=== PATIENT | female | born 1995 | race African-American/Black ===

== ENCOUNTER 2017-02-13 16:18 | Inpatient (IN) | payer BC, OTHER ==
[~2017-02-13] VITALS: Ht 180.3 cm; Wt 68.0 kg
[~2017-02-13 16:18] MED LIST: Bupropion Hcl PO; DICY20TA28 PO; Gabapentin PO; HYDR-3895 PO; Ibuprofen PO; LACT1CAP57 PO; METH-33 PO; RISP2TAB5 PO; SULF1TAB3 PO
--- NOTE | 2017-02-14 14:00 | NUR ---
PRE-ADMISSION Pt in intake, 21 yr old female, AA&Ox4. VS were obtain and WNL. Pt is medically cleared and stable.
[2017-02-14 14:05] VITALS: BP 108/72
[2017-02-14 15:36] LABS: *URINE HCG, QUAL NEGATIVE (NEGATIVE)
[2017-02-14 15:37] LABS: *BILIRUBIN,URIN NEGATIVE (NEGATIVE); *BLOOD, URINE 1+ (NEGATIVE); *CLARITY,URINE SLIGHTLY CLOUDY (CLEAR); *COLOR,URINE YELLOW (YELLOW); *KETONES,URINE NEGATIVE (NEGATIVE); *PROTEIN,URINE NEGATIVE (NEGATIVE); *UROBILINOGEN,URINE 0.2 E.U./dl (NORMAL); LEUKOCYTE ESTERASE ,URINE 1+ (NEGATIVE); NITRITE, URINE NEGATIVE (NEGATIVE); UGLUCOSE NEGATIVE (NEGATIVE)
[2017-02-14] MEDS ORDERED: HYDROXYZINE PAMOATE 25 MG CAPSULE PO PRN (15:45)
[2017-02-14] MEDS ORDERED: DICYCLOMINE HCL 20 MG TABLET PO PRN (15:45)
[2017-02-14] MEDS ORDERED: MAGNESIUM HYDROXIDE 30 ML LIQUID UDC PO PRN (15:45)
[2017-02-14] MEDS ORDERED: LOPERAMIDE HCL 2 MG CAPSULE PO PRN ×2 (15:45)
[2017-02-14] MEDS ORDERED: MAG HYDROX/AL HYDROX/SIMETH 30 ML LIQUID UDC PO PRN (15:45)
[2017-02-14] MEDS ORDERED: MIRALAX 17 GM POWD.PACK PO PRN (15:45)
[2017-02-14] MEDS ORDERED: ONDANSETRON 4 MG/2 ML VIAL IM PRN (15:45)
[2017-02-14] MEDS ORDERED: ACETAMINOPHEN 325 MG TABLET PO PRN (15:45)
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
[2017-02-14] MEDS ORDERED: QUET200T PO (15:48)
[2017-02-14] MEDS ORDERED: RISP2TAB5 PO (15:48)
[2017-02-14] MEDS ORDERED: BUPR300T52 PO (15:48)
[2017-02-14] MEDS ORDERED: CLON0.1T PO (15:48)
[2017-02-14 15:50] LABS: *AMPHETAMINE, URINE POSITIVE (NEGATIVE); *BARBITURATE, URINE NEGATIVE (NEGATIVE); *CANNABINOID, URINE NEGATIVE (NEGATIVE); *COCCAINE, URINE NEGATIVE (NEGATIVE); *OPIATE, URINE POSITIVE (NEGATIVE); *PHENCYCLIDINE SCREEN,URINE NEGATIVE (NEGATIVE)
[2017-02-14 16:00] VITALS: BP 97/61
[2017-02-14 16:23] LABS: BACTERIA,URINE MANY /HPF (NONE SEEN)
[2017-02-14 16:24] LABS: SQUAMOUS EPITHELIAL CELL,UR MANY /HPF (NONE SEEN)
[2017-02-14] MEDS: IBUPROFEN 600 MG TABLET PO PRN (16:24)
[2017-02-14] MEDS: SULFAMETH/TRIMETH 800/160 MG TABLET PO SCH ×2 (16:24→21:13)
[2017-02-14] MEDS: METHOCARBAMOL 750 MG TABLET PO PRN (16:24)
--- NOTE | 2017-02-14 16:24 | NUR ---
MEDICATION ADMINISTERED Pt started on Bactrim DS for infection on right brachial area and UTI. Encouraged increase fluid intake. Pt c/o both arm pain 10/10. Robaxin 750mg PRN and Motrin 600mg PO PRN was given for pain mgt. Medication joe well. Warm Compress was applied. Will continue to monitor.
--- NOTE | 2017-02-14 17:24 | NUR ---
PRN RE-ASSESSMENT Motrin PRN and Robaxin PRN was effective. Pt states pain 10. Encouraged increase fluid intake. Will continue to monitor.
[2017-02-14 19:05] LABS: BASOPHILS % (AUTO) 0.5 % (0.0-2.0); EOSINOPHILS # (AUTO) 0.1 K/uL (0.0-0.7); EOSINOPHILS % (AUTO) 0.8 % (0.0-7.0); HEMATOCRIT 37.8 % (37-47); HEMOGLOBIN 12.5 G/DL (12.0-16.0); LYMPHOCYTES # (AUTO) 2.1 K/UL (0.8-4.8); LYMPHOCYTES % (AUTO) 28.7 % (20.5-51.5); MEAN CORPUSCULAR HEMOGLOBIN 29.5 UUG (27.0-31.0); MEAN CORPUSCULAR HGB CONC 33 g/dL (32.0-37.0); MEAN CORPUSCULAR VOLUME 88.9 FL (81.0-99.0); MONOCYTES # (AUTO) 0.7 K/UL (0.1-1.30); MONOCYTES % (AUTO) 9.3 % (0.0-11.0); NEUTROPHILS # (AUTO) 4.3 K/UL (1.8-8.9); NEUTROPHILS % (AUTO) 60.7 % (38.5-71.5); PLATELET COUNT (AUTO) 289 K/UL (150-450); RED BLOOD CELL COUNT(AUTO) 4.26 MIL/UL (4.2-5.4); WHITE BLOOD COUNT (AUTO) 7.2 K/UL (4.0-11.2)
[2017-02-14 19:10] LABS: ALANINE AMINOTRANSFERASE 14 U/L (14-59); ALKALINE PHOSPHATASE 82 U/L (50-136); ASPARTATE AMINOTRANSFERASE 15 U/L (15-37); BILIRUBIN,TOTAL 0.5 mg/dL (0.2-1.0); CARBON DIOXIDE 22 mmol/L (21-32); CHLORIDE 104 mmol/L (98-107); CREATININE 0.8 mg/dL (0.6-1.3); GLUCOSE 82 mg/dL (74-106); MAGNESIUM 1.9 mg/dL (1.8-2.4); POTASSIUM 3.2 mmol/L (3.5-5.1); TOTAL PROTEIN, SERUM 7.3 g/dL (6.4-8.2); UREA NITROGEN, BLOOD 7 mg/dL (7-18)
--- NOTE | 2017-02-14 19:11 | NUR ---
END OF SHIFT Pt is a 21 yr old female, AA&Ox4. Pt is admitted for Opiate Dependence and is to start on 4 day Subutex taper on 02/15/17. Pt has been cooperative with care. Pt started on Bactrim DS for skin infection and UTI. No adverse reaction noted. Encouraged increase fluid intake. VS are WNL. Last COWS score is 7 at 1600. Safety precautions observed. Call light is within reach.
[2017-02-14 19:22] LABS: ETHANOL < 3 MG/DL (0-0)
[2017-02-14 19:46] LABS: THYROID STIMULATING HORMONE 1.013 mIU/mL (0.358-3.740)
[2017-02-14 20:00] VITALS: BP 113/76
--- NOTE | 2017-02-14 20:00 | NUR ---
START OF SHIFT: Pt is a 21 yr old female, AOx4. Pt is admitted for Opiate Dependence and is to start a 4 day Subutex taper on 02/15/17. Pt has been cooperative with treatment, started on Bactrim DS for skin infection and UTI. No adverse reaction noted. Pt c/o body aches, sweating of hands, chills, nausea and feeling flush. Last COWS is 14. Gave PRN Subutex for symptoms, will reassess pt for effectiveness of med. Will continue to monitor.
[2017-02-14] MEDS: BUPRENORPHINE HCL 2 MG TAB.SUBL SL PRN (20:01)
--- NOTE | 2017-02-14 21:01 | NUR ---
PRN REASSESSMENT: Pt reports feeling better, but still having some anxiety issues. Pt is up ambulating in [place] and request to smoke. Will continue to monitor.
[2017-02-14] MEDS: GABAPENTIN 300 MG CAPSULE PO SCH (21:13)
--- NOTE | 2017-02-15 | NUR ---
VITAL SIGN: Pt is calm and relaxed, no distress noted. Addendum: 02/15/17 at 0026 by MAAME JOSE RN Amended: Links added.
[2017-02-15] MEDS: BUPRENORPHINE HCL 2 MG TAB.SUBL SL PRN (03:06)
--- NOTE | 2017-02-15 03:06 | NUR ---
PRN SUBUTEX: Pt c/o feeling anxious, sweating, chills and body aches; gave subutex @4056 for withdrawal symptoms. Will reassess pt for effectiveness.
[2017-02-15 04:00] VITALS: BP 105/76
--- NOTE | 2017-02-15 04:06 | NUR ---
PRN REASSESSMENT: Pt reports feeling some relief from prn med, but still can't sleep and having some body aches. Will continue to monitor patient for symptoms.
--- NOTE | 2017-02-15 07:55 | NUR ---
START OF SHIFT NOTE Received report from night nurse, 20Opiate Dependence and is to start on 4 day Subutex taper starting today. Per endorsement pt received PRN Subutex, Last , slept for 1 hours. Received pt in her room anxious, restless. Pt reported slept for and hour last night and wanted to sleep now. Breathing normal no SOB noted respirations even and unlabored. Educated patient on her current plan of care for the day and her medication regimen, and encourage Po fluids as tolerated. All safety measures in place, Call light within reach. Will continue to monitor. Addendum: 02/15/17 at 1858 by CECE ROJAS LVN ERROR IN CHARTING 21 year old female admitted for Opioid dependence. Pt was placed on Subutex taper which is starting today at 0900.
[2017-02-15 08:00] VITALS: BP 106/69
[2017-02-15] MEDS: DOCUSATE SODIUM 250 MG CAPSULE PO SCH (08:36)
[2017-02-15] MEDS: GABAPENTIN 300 MG CAPSULE PO SCH ×3 (08:36→21:49)
[2017-02-15] MEDS: SULFAMETH/TRIMETH 800/160 MG TABLET PO SCH ×2 (08:36→21:49)
[2017-02-15] MEDS ORDERED: TUBERCULIN,PURIF.PROT.DERIV. 5 TU/0.1 ML TEST ID ONE (09:00)
[2017-02-15] MEDS ORDERED: 4 DAY TAPER BUPRENORPHINE -SERENITY PROTOCOL SL PRN (09:00)
[2017-02-15] MEDS: BUPRENORPHINE HCL 2 MG TAB.SUBL SL SCH ×4 (09:02→21:48)
[2017-02-15] MEDS ORDERED: BUPRENORPHINE HCL 2 MG TAB.SUBL SL ONE (09:11)
[2017-02-15] MEDS: ONDANSETRON ODT 4 MG TAB.RAPDIS SL PRN ×2 (10:28→17:35)
--- NOTE | 2017-02-15 10:28 | NUR ---
PRN ZOFRAN Pt c/o of nausea no emesis, PRN Zofran SL administered as ordered. Will cont to monitor and reassess.
--- NOTE | 2017-02-15 10:58 | NUR ---
REASSESSMENT Pt reported medication effective nausea improved.
--- NOTE | 2017-02-15 11:45 | NUR ---
Clinician encouraged client to attend groups when she feels better. Client said she would.
[2017-02-15 12:00] VITALS: BP 108/81
[2017-02-15] MEDS: METHOCARBAMOL 750 MG TABLET PO PRN (14:23)
--- NOTE | 2017-02-15 14:23 | NUR ---
PRN ROBAXIN Pt is c/o of muscle spasms 10/24. Administered PRN Robaxin 750 mg as ordered. Will cont to monitor and reassess.
[2017-02-15] MEDS: CLONIDINE HCL 0.1 MG TABLET PO PRN ×2 (14:30→21:50)
--- NOTE | 2017-02-15 14:30 | NUR ---
PRN CLONIDINE Pt was c/o hot, cold sweats. Administered PRN Clonidine 0.1mg as ordered. Will cont to monitor and reassess.
--- NOTE | 2017-02-15 15:23 | NUR ---
REASSESSMENT Pt reported muscle spasms decreased 1/10 medication effective.
--- NOTE | 2017-02-15 15:30 | NUR ---
REASSESSMENT Pt reported medication effective, hot and cold sweats subsided.
[2017-02-15 16:00] VITALS: BP 125/83
[2017-02-15] MEDS: IBUPROFEN 600 MG TABLET PO PRN (17:35)
--- NOTE | 2017-02-15 17:35 | NUR ---
PRN ZOFRAN/MOTRIN Pt c/o of nausea x1 emesis, and body aches 5/10 PRN Zofran SL /Motrin 600mg administered as ordered. Will cont to monitor and reassess.
[2017-02-15] MEDS ORDERED: 5 DAY TAPER BUPRENORPHINE -SERENITY PROTOCOL SL PRN (18:00)
--- NOTE | 2017-02-15 18:05 | NUR ---
REASSESSMENT Pt reported medication effective nausea improved and no episode of emesis.
--- NOTE | 2017-02-15 18:35 | NUR ---
REASSESSMENT Pt reported body aches decreased 2/10 medication effective.
--- NOTE | 2017-02-15 19:13 | NUR ---
END OF SHIFT NOTE Gave report to night nurse, 21 year old female admitted for Opioid dependence. Pt was placed on 4 days Subutex taper and changed to 5 days and stated this morning. Pt presented anxious, agitated, restless,nausea, vomiting, unable to sit still, body aches, muscle spasms, hot and cold flashes. Pt was given PRN Clonidine, Zofran x2, Motrin, Robaxin, effective. Vital signs remained stable. All safety measures in place, Call light within reach. Pt endorsed to night nurse in stable condition.
--- NOTE | 2017-02-15 19:15 | NUR ---
START OF SHIFT NOTE : Pt. is 21 year old female admitted for Opioid dependence. Pt was placed on 4 days Subutex taper and changed to 5 days and stated this morning. Pt presented anxious, agitated, restless, unable to sit still, muscle spasms, hot and cold flashes. Vital signs remained stable. Pt. goes to smoke every 40 minutes. All safety measures in place, Call light within reach. All needs have been met. Will continue to monitor patient and offer help.
[2017-02-15 20:00] VITALS: BP 119/89
--- NOTE | 2017-02-15 21:00 | NUR ---
PRN BENADRYL CLONIDINE Pt. complains of sleeplessness, flashes. PRN BENADRYL CLONIDINE given as ordered. Safety measures in place : bed on lowest position with side rails x2 up for safety, call light within reach. Will continue to monitor closely and offer help.
[2017-02-15] MEDS: risperiDONE 2 MG TABLET PO SCH (21:49)
[2017-02-15] MEDS: diphenhydrAMINE 50 MG CAPSULE PO PRN (21:49)
[2017-02-15] MEDS: LACTOBACILLUS RHAMNOSUS GG 1 EACH CAPSULE PO SCH (21:50)
--- NOTE | 2017-02-15 22:00 | NUR ---
REASSESSMENT BENADRYL , CLONIDINE Pt. is sleeping , RR=16 , unlabored and even. Safety measures in place : bed on lowest position with side rails x2 up for safety, call light within reach. Will continue to monitor closely and offer help.
--- NOTE | 2017-02-16 06:54 | NUR ---
END OF SHIFT NOTE : Pt. is 21 year old female admitted for Opioid dependence. Pt was placed on 4 days Subutex taper and changed to 5 days and stated this morning. Pt presented anxious, agitated, restless, unable to sit still, muscle spasms, hot and cold flashes. Vital signs remained stable Pt remains compliant with the treatment plan. PRN BENADRYL, CLONIDINE were given during my shift. V/S remain WNL. RR=16, even and unlabored, lungs clear upon auscultation, abdomen soft and non- distended. Pt denies nausea, vomiting and diarrhea. LAST COWS=5 at 0400 , [id number] ml, voided x 3, slept 5 hours. Safety measures in place : bed on lowest position with side rails x2 up for safety, call light within reach. Will continue to monitor closely and offer help.
--- NOTE | 2017-02-16 07:00 | NUR ---
Start of Shift Report to night nurse: pt is 21 y/o female her for Opiate r/t Heroin, Methamphetamine, & Marijuana dependence; 5 day Subutex taper ordered. Pt is a full code, regular diet, fall precautions ordered. HHhx: Asthma, Bipolar, multiple relapse with a visit here. No new orders or labs endorsed to me. V/S stable. Skin is not intact with abscess on RA and Uti with Atbs given as ordered. PRN Benadryl and Clonidine given last night. Last COWS 5. Pt is asleep in room. Will cont. to monitor the pt.
[2017-02-16 08:00] VITALS: BP 86/53
[2017-02-16 08:08] LABS: HEPATITIS B SURFACE AG Negative (Negative)
[2017-02-16 08:32] LABS: CREATININE 0.9 mg/dL (0.6-1.3); MAGNESIUM 2.2 mg/dL (1.8-2.4); PHOSPHOROUS 5.2 mg/dL (2.5-4.9); POTASSIUM 3.7 mmol/L (3.5-5.1)
[2017-02-16] MEDS ORDERED: BUPRENORPHINE HCL 2 MG TAB.SUBL SL SCH ×2 (09:00→15:00)
--- NOTE | 2017-02-16 09:00 | NUR ---
Deferred COWS Pt is asleep in bed. No COWS obtained. Will cont. to monitor the pt.
[2017-02-16] MEDS: LACTOBACILLUS RHAMNOSUS GG 1 EACH CAPSULE PO SCH ×2 (11:27→21:07)
[2017-02-16] MEDS: DOCUSATE SODIUM 250 MG CAPSULE PO SCH (11:27)
[2017-02-16] MEDS: GABAPENTIN 300 MG CAPSULE PO SCH ×3 (11:27→21:08)
[2017-02-16] MEDS: BUPRENORPHINE HCL 2 MG TAB.SUBL SL SCH ×3 (11:27→21:07)
[2017-02-16] MEDS: SULFAMETH/TRIMETH 800/160 MG TABLET PO SCH ×2 (11:27→21:07)
[2017-02-16 12:00] VITALS: BP_SYST 100; BP_SYST 113; BP_DIAS 64; BP_DIAS 67
[2017-02-16 16:00] VITALS: BP 102/64
--- NOTE | 2017-02-16 17:00 | NUR ---
Therapist prompted client about group times. Client stated she will start attending groups tomorrow when she feels better.
[2017-02-16] MEDS: KETOROLAC TROMETHAMINE 30 MG INJ IM PRN (17:03)
--- NOTE | 2017-02-16 17:05 | NUR ---
PRN Medication Administration Pt c/o Generalized pain 8-10; PRN Toradol 30mg given PRN in Right Deltoid. Will reassess in 1H.
--- NOTE | 2017-02-16 18:05 | NUR ---
Reassessment Pt is in bed resting and watching television and denies pain 0/10; Toradol is effective. Will cont. to monitor the pt.
--- NOTE | 2017-02-16 18:52 | NUR ---
End of Shift Report to night nurse with update: pt is stable. Skin is still intact. V/S stable. PRN Toradol given as ordered. Pt is excused from group therapy since this is her second day and she was able to catch up on sleep. No hallucinations, delusions or suicidal ideations noted. Last COWS 7
--- NOTE | 2017-02-16 19:15 | NUR ---
START OF SHIFT NOTE : Pt. is 21 year old female admitted for Opioid dependence. Pt was placed on 4 days Subutex taper and changed to 5 days , tolerating good. Pt presented anxious, restless, muscle spasms. Vital signs remained stable , Last COWS 5. Pt is asleep in room. Safety measures in place : bed on lowest position with side rails x2 up for safety, call light within reach. Will continue to monitor closely and offer help.
[2017-02-16 20:00] VITALS: BP 85/45
--- NOTE | 2017-02-16 21:00 | NUR ---
PRN BENADRYL, ROBAXIN Pt. complains of sleeplessness, muscle spasm. PRN BENADRYL, ROBAXIN given as ordered. Safety measures in place : bed on lowest position with side rails x2 up for safety, call light within reach. Will continue to monitor closely and offer help.
[2017-02-16] MEDS: METHOCARBAMOL 750 MG TABLET PO PRN (21:07)
[2017-02-16] MEDS: risperiDONE 2 MG TABLET PO SCH (21:07)
[2017-02-16] MEDS: diphenhydrAMINE 50 MG CAPSULE PO PRN (21:07)
--- NOTE | 2017-02-16 22:00 | NUR ---
REASSESSMENT RUSSEL HENDERSON Pt. is sleeping , RR=16 , unlabored and even. Safety measures in place : bed on lowest position with side rails x2 up for safety, call light within reach. Will continue to monitor closely and offer help.
[2017-02-17 04:00] VITALS: BP 104/59
--- NOTE | 2017-02-17 06:41 | NUR ---
END OF SHIFT NOTE : Pt. is 21 year old female admitted for Opioid dependence. Pt was placed on 4 days Subutex taper and changed to 5 days , tolerating good. Pt presented anxious, restless, muscle spasms. Vital signs remained stable . Pt remains compliant with the treatment plan. PRN BENADRYL, ROBAXIN were given during my shift. V/S remain WNL. RR=16, even and unlabored, lungs clear upon auscultation, abdomen soft and non- distended. Pt denies nausea, vomiting and diarrhea. LAST COWS=5 at 0400 , [id number] ml, voided x 4, slept 5 hours. Safety measures in place : bed on lowest position with side rails x2 up for safety, call light within reach. Will continue to monitor closely and offer help.
--- NOTE | 2017-02-17 07:40 | NUR ---
Start of shift note; Received report from night nurse. Patient is a 21 year old female admitted on 02/14/17 for Opiate withdrawals. Patient was placed on a 5 day Subutex taper, no adverse reactions noted. Patient reported PMH of asthma and bipolar disorder. Patient is on full code status, regular diet. Patient noted to have skin abscess on right brachial area with current treatment of Bactrim DS Q12H. Patient is on fall precaution. Bed in lowest position, call light within reach. will continue to monitor patient.
[2017-02-17 08:00] VITALS: BP 99/68
[2017-02-17] MEDS ORDERED: BUPRENORPHINE HCL 2 MG TAB.SUBL SL SCH ×2 (09:00)
[2017-02-17] MEDS: GABAPENTIN 300 MG CAPSULE PO SCH ×3 (09:20→20:25)
[2017-02-17] MEDS: DOCUSATE SODIUM 250 MG CAPSULE PO SCH (09:20)
[2017-02-17] MEDS: LACTOBACILLUS RHAMNOSUS GG 1 EACH CAPSULE PO SCH ×2 (09:20→20:25)
[2017-02-17] MEDS: SULFAMETH/TRIMETH 800/160 MG TABLET PO SCH ×2 (09:20→20:24)
[2017-02-17] MEDS: ONDANSETRON ODT 4 MG TAB.RAPDIS SL PRN (11:09)
--- NOTE | 2017-02-17 11:21 | NUR ---
PRN medication; Patient is complaining of nausea, PRN Zofran 4mg ODT given to patient, will continue to monitor for effectiveness of medication.
[2017-02-17 12:00] VITALS: BP 99/65
--- NOTE | 2017-02-17 12:21 | NUR ---
Re-assessment; Patient denies nausea at this time. PRN medication is effective.
[2017-02-17] MEDS: BUPRENORPHINE HCL 2 MG TAB.SUBL SL SCH ×2 (14:19→20:25)
[2017-02-17 16:00] VITALS: BP 106/57
[2017-02-17] MEDS ORDERED: LIDOCAINE 2%-EPI 1:100,000 20 ML VIAL TP ONE (16:45)
[2017-02-17] MEDS ORDERED: LIDOCAINE 1%-EPI 1:100,000 20 ML VIAL TP ONE (16:45)
--- NOTE | 2017-02-17 17:00 | NUR ---
Procedure; Left AC I&D procedure done by RIGGER THIRD. Patient tolerated procedure well. Site kept clean and covered with dry dressing. Patient denies pain at this time. Will continue to monitor patient.
--- NOTE | 2017-02-17 18:20 | NUR ---
End of shift note; Patient is AOX4. Patient is a 21 year old female admitted on 02/14/17 for Opiate withdrawals. Patient was placed on a 5 day Subutex taper, no adverse reactions noted. Patient reported PMH of asthma and bipolar disorder. Patient is on full code status. Patient had I&D procedure today on her left AC, tolerated procedure well. Patient remained compliant to treatment and medication regime, medications were effective in reducing withdrawal symptoms. All safety measures secured. Met all needs.
--- NOTE | 2017-02-17 18:50 | NUR ---
START OF SHIFT NOTE: Patient endorsed by day shift nurse. Report received. Patient is a 21 year old female admitted to [facility] on 02/14/2017 for medically supervised withdrawal from heroin (IV) continue ordered 5 Day Subutex Taper since 02/15/2017 Taper with tolerated well without ASE. Patient remained compliant with treatment, medications and diet regime. Patient reports Allergies to Lamotrigine, Naloxone, and Oxcarbazepine. Patient is on Full Code, Regular Diet. Patient is on Fall and Seizures Precautions. Patient denies past Seizures History. PMH: Asthma, Bipolar Disorder. Patient reports Substance Use: "Heroin via IV 1-1.5 gram every day since 01/22/17. Last uses 0.3 grams via IV on 02/14/2017". Patient reports also uses "Methamphetamine via IV 0.2-0.3 grams every day since 01/23/2017. Last uses 0.3 grams via IV on 02/14/17". Patient uses "Marijuana 0.3 grams smoke every day during last month, since 01/14/2017. Last uses 0.3 grams on 02/12/2017". Patient reports that she was in multiple treatments. Last treatment was in "[facility]" on Nov, 2016 for 30 days, then relapsed on 01/22/17". "[facility] on Nov, 2016". At the time of endorsement patient is in his room. Patient is alert and oriented x4. Speech is clear and soft. Upon assessment: CIWA 5. Patient presented with anxiety, nervousness, tremors, barely sweating, restless legs, and fatigue. Patient denies SI/HI. Respirations unlabored and even. Patient denies SOB and chest pain. Lungs Sounds are clear bilaterally. Bowel Sounds active in all x4 quadrants. PERRLA, brisk capillary refill, receivable executive equal and strong. Skin is warm and dry to touch. Patient has abscess on Left Brachial area, that treated with I&D procedure today on her left AC, tolerated procedure well. VS WNL. Encourage fluids as tolerated. Encourage to attend activities group. Safety measures on place. Call light within reach, bed in lowest position and locked, padded rails up bilaterally rails up bilaterally. Will continue to monitor closely. Addendum: 02/18/17 at 2204 by TG GANT RN COWS 5.
[2017-02-17 20:00] VITALS: BP 104/73
--- NOTE | 2017-02-17 20:00 | NUR ---
DRESSING CHANGE: Patient c/o dressing loose on her left AC. Site kept clean and covered with dry dressing. Patient tolerated well. Patient denies pain at this time. All needs met. Safety measures on place. Call light within reach, bed in lowest position and locked, padded rails up bilaterally rails up bilaterally. Will continue to monitor closely.
[2017-02-17] MEDS: risperiDONE 2 MG TABLET PO SCH (20:26)
[2017-02-18] VITALS: BP 106/78
[2017-02-18] MEDS: diphenhydrAMINE 50 MG CAPSULE PO PRN ×2 (03:50→23:07)
--- NOTE | 2017-02-18 03:50 | NUR ---
PRN BENADRYL 50 MG 1 TAB PO ADMINISTRATION: Patient c/o insomnia and asked aid. Patient was assessed. VS WNL. PRN Benadryl 50 mg 1 tab PO administrated as ordered with full glass of water. Patient tolerated well. All needs met. Safety measures on place. Call light within reach, bed in lowest position and locked, padded rails up bilaterally.
[2017-02-18 04:00] VITALS: BP 104/70
--- NOTE | 2017-02-18 04:50 | NUR ---
RE-ASSESSMENT Patient is sleeping. RR 14. Respirations unlabored and even. All needs met. Safety measures on place. Call light within reach, bed in lowest position and locked, padded rails up bilaterally rails up bilaterally. Will continue to monitor closely.
--- NOTE | 2017-02-18 07:16 | NUR ---
END OF SHIFT NOTE: Patient endorsed to day shift nurse in stable condition. Report given. Patient is a 21 year old female admitted to [facility] on 02/14/2017 for medically supervised withdrawal from heroin (IV) continue ordered 5 Day Subutex Taper since 02/15/2017 Taper with tolerated well without ASE. Patient remained compliant with treatment, medications and diet regime. Patient reports Allergies to Lamotrigine, Naloxone, and Oxcarbazepine. Patient is on Full Code, Regular Diet. Patient is on Fall and Seizures Precautions. Patient denies past Seizures History. PMH: Asthma, Bipolar Disorder. Upon last assessment at 0400 COWS 7. Patient presented with anxiety, nervousness, tremors, barely sweating, restless legs, insomnia, and fatigue. Patient denies SI/HI. Respirations unlabored and even. Patient denies SOB and chest pain. Skin is warm and dry to touch. Patient has abscess on Left Brachial area, Left AC site kept clean and covered with dry dressing . Patient tolerated well. Patient denies pain at this time. VS at 0400 VS at 0400: T: 97.9; BP: 104/70; HR:70; RR:16; O2 SAT: 98%, pain level:"0/10". Encourage fluids as tolerated. Encourage to attend group activities. PRN Benadryl PO administrated as ordered for insomnia and was effective. Patient slept 6 hours, intake 2,710 ml, voided x6. All needs met. Safety measures on place. Call light within reach, bed in lowest position and locked, padded rails up bilaterally.
--- NOTE | 2017-02-18 07:57 | NUR ---
BEGINNING OF SHIFT Patient endorsement report received from rebar worker nurse, all pertinent information discussed. patient is a 21 year old female admitted on: 02/14/2017, with admitting Dx: Opiate dependence. Patient with past medical history of: asthma and bipolar d/o. Fall precautions observed at all times. S/P I&D Of abscess on right brachial area done on 02/17/2017. Will monitor closely. Patient Received PRN: Benadryl during rebar worker, per rebar worker medication effective, last cow score of: 8. Patient slept for 6 hours. Patient continues under close observation. continues on 5 day Subutex taper as ordered. taper as ordered and is scheduled to begin day 3 of taper. Safety measures in place. will continue to monitor.
[2017-02-18 08:19] VITALS: BP 100/67
[2017-02-18] MEDS: SULFAMETH/TRIMETH 800/160 MG TABLET PO SCH ×2 (08:47→20:38)
[2017-02-18] MEDS: DOCUSATE SODIUM 250 MG CAPSULE PO SCH (08:47)
[2017-02-18] MEDS: LACTOBACILLUS RHAMNOSUS GG 1 EACH CAPSULE PO SCH ×2 (08:47→20:37)
[2017-02-18] MEDS: GABAPENTIN 300 MG CAPSULE PO SCH ×3 (08:48→20:37)
[2017-02-18] MEDS: BUPRENORPHINE HCL 2 MG TAB.SUBL SL SCH ×3 (08:48→20:38)
[2017-02-18] MEDS ORDERED: BUPRENORPHINE HCL 2 MG TAB.SUBL SL SCH (09:00)
[2017-02-18] MEDS: KETOROLAC TROMETHAMINE 30 MG INJ IM PRN (12:18)
[2017-02-18] MEDS: ONDANSETRON ODT 4 MG TAB.RAPDIS SL PRN (12:22)
--- NOTE | 2017-02-18 12:22 | NUR ---
PRN TORADOL/ZOFRAN patient c/o pain of right A/C 10/, S/P I&D of abscess. patient c/o feeling nauseous, no episodes of vomiting noted. Patient was administered Toradol 30mg IM injection as ordered, injection well tolerated. patient was also administered Zofran 4mg SL as ordered, will monitor effectiveness of medication. safety measures in place. will continue to monitor. safety measures in place.
[2017-02-18] MEDS ORDERED: HYDROXYZINE PAMOATE 25 MG CAPSULE PO PRN (13:15)
--- NOTE | 2017-02-18 13:22 | NUR ---
TORADOL/ZOFRAN REASSESSMENT & DRESSING CHANGE Patient reports medication effective decrease in pain, current pain level is 2/10, tolerable as per patient. reports no longer feels nauseous. Dressing change to right A/C as ordered, cleansed with normal saline packed with iodine strips and covered with dry dressing as ordered, procedure well tolerated, aseptic technique observed at all times. Incision with no s/sx of infection. Encouraged patient increase in PO fluid intake as tolerated. Will continue to monitor closely. safety measures in place. Afebrile, skin warm and dry to touch, will continue ot monitor.
[2017-02-18 14:33] VITALS: BP 107/63
[2017-02-18] MEDS ORDERED: GABA-534 PO (15:03)
[2017-02-18] MEDS ORDERED: DIPH50CA37 PO (15:03)
[2017-02-18] MEDS ORDERED: DICY20TA28 PO (15:03)
[2017-02-18] MEDS ORDERED: SULF1TAB3 PO (15:03)
[2017-02-18] MEDS ORDERED: METH-406 PO (15:03)
[2017-02-18] MEDS ORDERED: HYDR-3895 PO (15:03)
[2017-02-18] MEDS ORDERED: IBUP-1955 PO (15:03)
--- NOTE | 2017-02-18 15:40 | NUR ---
Client was prompted to attend daily groups. Client stated that she would consider attending.
[2017-02-18 17:00] VITALS: BP 92/62
--- NOTE | 2017-02-18 18:53 | NUR ---
END OF SHIFT Patient alert and oriented x4, compliant with therapeutic plan of care. patient is a 21 year old female admitted on: 02/14/2017, with admitting Dx: Opiate dependence. Patient with past medical history of: asthma and bipolar d/o, with substance use of: heroin 1-1.5gram IV daily from -02/14/2017. Also with substance use of methamphetamine and marijuana. Patient currently with ongoing 5 day Subutex taper as ordered and is currently on day 3 of taper as ordered well tolerated, no ASE noted, 0900 assessment patient presented with heart rate of 84, c/o chills, restlessness, mild bone and joint aches, tremors that can be felt but not seen, irritable, and anxiety with cow score of: 8; 1300 assessment patient presented with: heart rate of 90, c/o chills, mild bone and joint aches, tremors that can be felt but not seen and anxiety with cow sore of: 6; 1700 assessment patient presented with: heart rate of 92, c/o chills, mild bone and joint aches, tremors that can be felt but not seen and anxiety with cow score of: 6. During shift patient received PRN: Toradol injection and Zofran as ordered, medication with relief one hour post administration. Wound care completed as ordered, area kept clean and dry, dressing is intact. Patient encouraged adequate PO fluid intake as tolerated. Encouraged to attend group therapies/sessions to learn new coping skills to prevent relapse. Denies any SI/HI. All needs met and rendered, call light kept with in reach, safety measures in place. Patient endorsement report given to women's soccer coach nurse.
--- NOTE | 2017-02-18 18:53 | NUR ---
START OF SHIFT NOTE: Patient endorsed by day shift nurse. Report received. Patient is a 21 year old female admitted to [facility] on 02/14/2017 for medically supervised withdrawal from heroin (IV) continue ordered 5 Day Subutex Taper since 02/15/2017 Taper with tolerated well without ASE. Patient remained compliant with treatment, medications and diet regime. Patient reports Allergies to Lamotrigine, Naloxone, and Oxcarbazepine. Patient is on Full Code, Regular Diet. Patient is on Fall and Seizures Precautions. Patient denies past Seizures History. PMH: Asthma, Bipolar Disorder, Substance Use. At the time of endorsement patient is in his room. Patient is alert and oriented x4. Speech is clear and soft. Upon assessment: CIWA 6. Patient presented with anxiety, nervousness, tremors, barely sweating, restless legs, and fatigue. Patient denies SI/HI. Respirations unlabored and even. Patient denies SOB and chest pain. Lungs Sounds are clear bilaterally. Bowel Sounds active in all x4 quadrants. PERRLA, brisk capillary refill, import export agent equal and strong. Skin is warm and dry to touch. Patient has abscess on Left Brachial area, that treated with I&D procedure today on her left AC, tolerated procedure well. VS WNL. Encourage fluids as tolerated. Encourage to attend activities group. Safety measures on place. Call light within reach, bed in lowest position and locked, padded rails up bilaterally rails up bilaterally. Will continue to monitor closely. Addendum: 02/18/17 at 2203 by TG GANT RN COWS 6.
[2017-02-18 20:00] VITALS: BP 90/60
[2017-02-18] MEDS: risperiDONE 2 MG TABLET PO SCH (20:38)
[2017-02-19] VITALS: BP 98/53
--- NOTE | 2017-02-19 00:07 | NUR ---
RE-ASSESSMENT Patient is sleeping. Respirations unlabored and even. RR 14. PRN Benadryl PO was effective. All needs met. Safety measures on place. Call light within reach, bed in lowest position and locked, padded rails up bilaterally rails up bilaterally. Will continue to monitor closely.
[2017-02-19 04:00] VITALS: BP 96/55
--- NOTE | 2017-02-19 07:13 | NUR ---
END OF SHIFT NOTE: Patient endorsed to day shift nurse in stable condition. Report given. Patient is a 21 year old female admitted to [facility] on 02/14/2017 for medically supervised withdrawal from heroin (IV) continue ordered 5 Day Subutex Taper since 02/15/2017 with tolerated well without ASE. Patient remained compliant with treatment, medications and diet regime. Patient reports Allergies to Lamotrigine, Naloxone, and Oxcarbazepine. Patient is on Full Code, Regular Diet. Patient is on Fall and Seizures Precautions. Patient denies past Seizures History. COWS 5 at 0400. Patient presented with anxiety, tachycardia, nervousness, tremors, barely sweating, restless legs, insomnia, and fatigue. Patient denies SI/HI. Respirations unlabored and even. Patient denies SOB and chest pain. Skin is warm and dry to touch. Patient has abscess on Left Brachial area, Left AC site kept clean and covered with dry dressing . Patient tolerated well. Patient denies pain at this time. VS at 0400 VS at 0400: T: 97.8; BP: 96/55; HR:86; RR:18; O2 SAT: 96%, pain level:"0/10". Encourage fluids as tolerated. Encourage to attend group activities. PRN Benadryl PO administrated as ordered for insomnia and was effective. Patient slept 6 hours 15 minutes, intake 1,592 ml, voided x4. All needs met. Safety measures on place. Call light within reach, bed in lowest position and locked, padded rails up bilaterally.
[2017-02-19 08:00] VITALS: BP 100/62
--- NOTE | 2017-02-19 08:00 | NUR ---
START OF SHIFT NOTE Received report from night nurse, 21 year old female admitted for Opiate Dependence Pt is cont with Subutex taper. Per endorsement pt was given PRN Benadryl effective. Received pt resting in her room Breathing normal no SOB noted respirations even and unlabored. Educated patient on her current plan of care for the day and her medication regimen, and encourage Po fluids as tolerated. All safety measures in place, Call light within reach. Will continue to monitor.
[2017-02-19] MEDS ORDERED: BUPRENORPHINE HCL 2 MG TAB.SUBL SL SCH (09:00)
[2017-02-19] MEDS: SULFAMETH/TRIMETH 800/160 MG TABLET PO SCH ×2 (10:03→20:58)
[2017-02-19] MEDS: GABAPENTIN 300 MG CAPSULE PO SCH ×3 (10:03→20:58)
[2017-02-19] MEDS: LACTOBACILLUS RHAMNOSUS GG 1 EACH CAPSULE PO SCH ×2 (10:03→20:58)
[2017-02-19 12:00] VITALS: BP 101/58
[2017-02-19 12:06] LABS: *AMPHETAMINE, URINE NEGATIVE (NEGATIVE); *BARBITURATE, URINE NEGATIVE (NEGATIVE); *CANNABINOID, URINE NEGATIVE (NEGATIVE); *COCCAINE, URINE NEGATIVE (NEGATIVE); *OPIATE, URINE POSITIVE (NEGATIVE); *PHENCYCLIDINE SCREEN,URINE NEGATIVE (NEGATIVE)
[2017-02-19] MEDS ORDERED: ONDANSETRON ODT 4 MG TAB.RAPDIS SL PRN (13:00)
[2017-02-19] MEDS ORDERED: MAGNESIUM CITRATE 296 ML BOTTLE PO ONE (13:00)
[2017-02-19] MEDS: DICYCLOMINE HCL 20 MG TABLET PO SCH ×2 (14:09→20:58)
[2017-02-19] MEDS: BACLOFEN 20 MG TABLET PO SCH ×2 (14:09→20:57)
[2017-02-19 16:00] VITALS: BP 105/60
--- NOTE | 2017-02-19 18:55 | NUR ---
END OF SHIFT NOTE Gave report to night nurse, 21 year old female admitted for Opioid dependence. Pt completed her Subutex taper tolerating well. Pt scheduled for discharge in AM, urine drug screen completed and placed in the chart. Left arm abscess change the dressing and picture taken and placed in the chart no s/s of infection no bleeding noted. Pt attended some groups and activities. Pt remained compliant with care. Vital signs remained WNL. All safety measures in place, Call light within reach. Pt endorsed to night nurse in stable condition.
[2017-02-19 20:00] VITALS: BP 119/80
--- NOTE | 2017-02-19 20:15 | NUR ---
START OF SHIFT NOTE Pt is a 21 y/o female admitted for Heroin, Meth, and Marijuana dependence and use. Pt has allergies to Lamictal, naloxone, and oxcarbazepine and reported a PMH of asthma and bipolar. Per day shift nurse pt completed a 5 day Subutex taper and is scheduled for discharge tomorrow. UA was collected and sent to the lab for testing via day shift nurse. Pt received Magnesium citrate for a c/o constipation. Pt has not yet had a bowel movement but reported having flatulence and very mild stomach cramps. Bowel sounds are present in all 4 quadrants. Last COW: 3 (1600). Pt denies any pain/discomfort other than mild stomach cramps. Pt was encouraged to notify staff of any changes in condition or of any concerns and also to increase fluids. Pt verbalized an understanding. All safety measures in place. Will continue to monitor.
[2017-02-19] MEDS: risperiDONE 2 MG TABLET PO SCH (20:57)
--- NOTE | 2017-02-20 | NUR ---
VITALS REFUSED/ COW DEFERRED Pt refused to have vitals taken at this time. Pt was encouraged x 3 with risks and benefits explained, but the pt still declined. COW assessment deferred until patient is awake. All safety measures in place. Will continue to monitor. Addendum: 02/20/17 at 0258 by KAREL NEGRO LVN Amended: Links added.
--- NOTE | 2017-02-20 04:00 | NUR ---
VITALS REFUSED/ COW DEFERRED Pt refused to have vitals taken at this time. Pt was encouraged x 3 with risks and benefits explained, but the pt still declined. COW assessment deferred until patient is awake. All safety measures in place. Will continue to monitor. Addendum: 02/20/17 at 0610 by KAREL NEGRO LVN Amended: Links added.
--- NOTE | 2017-02-20 06:52 | NUR ---
END OF SHIFT NOTE Pt is a 21 y/o female admitted for Heroin, Meth, and Marijuana dependence and use. Pt has allergies to Lamictal, naloxone, and oxcarbazepine and reported a PMH of asthma and bipolar. Pt completed 5 day Subutex taper and is scheduled for discharge today. UA results were filed appropriately in the clients chart. Pt didn't receive any PRNS during the shift. Last COW: 3 (1999). Pt slept for a total of 6 hours. All safety measures in place. Will endorse to the oncoming nurse.
--- NOTE | 2017-02-20 07:50 | NUR ---
START OF SHIFT NOTE Received report from night nurse, 21 year old female admitted for Opiate Dependence Pt completed her Subutex taper. Per endorsement pt was given PRN Benadryl effective. Received pt resting in her room Breathing normal no SOB noted respirations even and unlabored. Pt scheduled for discharge today. Will educate regarding plan of care and will provided education/teaching regarding all discharged instructions. Educated patient on her current plan of care for the day and her medication regimen, and encourage Po fluids as tolerated. All safety measures in place, Call light within reach. Will continue to monitor.
[2017-02-20 08:00] VITALS: BP 100/64
[2017-02-20] MEDS: LACTOBACILLUS RHAMNOSUS GG 1 EACH CAPSULE PO SCH (08:23)
[2017-02-20] MEDS: GABAPENTIN 300 MG CAPSULE PO SCH (08:23)
[2017-02-20] MEDS: BACLOFEN 20 MG TABLET PO SCH (08:23)
[2017-02-20] MEDS: SULFAMETH/TRIMETH 800/160 MG TABLET PO SCH (08:23)
[2017-02-20] MEDS: DICYCLOMINE HCL 20 MG TABLET PO SCH (08:23)
--- NOTE | 2017-02-20 10:00 | NUR ---
DISCHARGE NOTE Pt is in stable condition. Vital signs WNL. Pt is alert and oriented x4. Pt denies any SI/HI ideations. All discharge paper work completed dated signed. Pt educated about discharge instructions, what to do after discharge, when to contact MD as well as the s/s reportable to MD, Pt verbalized understanding. Pt 's last COWS score-0. Pt left the building with all her belongings and prescriptions, Pt did not bring any medications with her to the unit. MD has been contacted and notified of pt's discharge.
== END 2017-02-20 10:00 | disposition home or self-care (01) | DRG 895 ==
LOC: SRC 02-14 13:47
PROVIDERS: ADMIT Internal Medicine; ATTEND Internal Medicine
PROC: HZ2ZZZZ Detoxification Services for Substance Abuse Treatment (ICD-10-PCS; principal; 2017-02-14)
PROC: HZ31ZZZ Individual Counseling for Substance Abuse Treatment, Behavioral (ICD-10-PCS; 2017-02-15)
PROC: 0H9CXZZ Drainage of Left Upper Arm Skin, External Approach (ICD-10-PCS; 2017-02-17)
DX: F11.23 Opioid dependence with withdrawal (principal); N30.00 Acute cystitis without hematuria; L02.414 Cutaneous abscess of left upper limb; L02.413 Cutaneous abscess of right upper limb; L03.114 Cellulitis of left upper limb; L03.113 Cellulitis of right upper limb; F11.288 Opioid dependence with other opioid-induced disorder; F12.10 Cannabis abuse, uncomplicated; S41.132S Puncture wound without foreign body of left upper arm, sequela; S41.131S Puncture wound without foreign body of right upper arm, sequela; X78.8XXS Intentional self-harm by other sharp object, sequela; J45.40 Moderate persistent asthma, uncomplicated; Z91.5 Personal history of self-harm; Z59.0 Homelessness; Z88.8 Allergy status to other drugs, medicaments and biological substances; E87.6 Hypokalemia; F31.9 Bipolar disorder, unspecified; F15.10 Other stimulant abuse, uncomplicated; F17.210 Nicotine dependence, cigarettes, uncomplicated; F41.9 Anxiety disorder, unspecified; K59.03 Drug induced constipation
CPT/HCPCS: 36415; 80307; 80324; 80361; 83735; 84100; 84443; 84703; 85025; 86580; 86592; 86705; 86803; 87340; 87806; A4663; G0480; J1885; J3490; Q0162; Q0163